=== PATIENT | female | born 1995 | race Two or more races ===

== ENCOUNTER 2022-08-18 17:47 | Emergency (ER) | payer BC ==
[~2022-08-18] VITALS: Ht 154.9 cm; Wt 99.8 kg
[2022-08-18] MEDS ORDERED: PROTONIX20 MG PO (18:12)
== END 2022-08-18 22:16 | disposition home or self-care (01) ==
LOC: ER 17:47
DX: B02.9 Zoster without complications (principal); Z88.0 Allergy status to penicillin; Z88.8 Allergy status to other drugs, medicaments and biological substances